=== PATIENT | female | born 1980 | race African-American/Black ===

== ENCOUNTER 2016-11-28 08:30 | Emergency (ER) | payer SELFPAY ==
[2016-11-28] MEDS ORDERED: ONDANSETRON *ODT* 4 MG TABLET ONE (08:53)
[2016-11-28] MEDS ORDERED: ONDANSETRON *ODT* 4 MG TABLET SL ONE (08:55)
[2016-11-28] MEDS ORDERED: PANTOPRAZOLE SODIUM 40 MG in SODIUM CHLORIDE 100 ML IVPB ONE (08:56)
[2016-11-28] MEDS ORDERED: SODIUM CHLORIDE 1,000 ML IV STA ×2 (08:56→10:10)
[2016-11-28] MEDS ORDERED: morphine CARPU-JECT 2 MG/1 ML DISP.SYRIN IVPUSH ONE (09:06)
[2016-11-28 09:09] VITALS: TEMP 98; BMI 24.7
[2016-11-28] MEDS ORDERED: morphine CARPU-JECT 4 MG/1 ML DISP.SYRIN ONE (09:34)
[2016-11-28] MEDS ORDERED: FAMOTIDINE 20 MG/50 ML IVPB 50 ML IVPB ONE (09:34)
--- NOTE | 2016-11-28 09:55 | PDOC ---
History of Present Illness - General Chief Complaint: Pain, Acute Stated Complaint: ABD PAIN Time Seen by Provider: 11/28/16 08:50 History Source: Patient Exam Limitations: No Limitations - History of Present Illness Travel History: No Initial Comments: 11/28/16 09:59 36-year-old female brought in by EMS for evaluation of nausea vomiting upper abdominal pain since yesterday. Patient states has had no fever, chills, diarrhea, lower abdominal pain, irregular menses, or dysuria. Patient denies GI disorders but states does smoke marijuana occasionally. Patient states has not taken anything for the pain or nausea decided come to the ER today. Timing/Duration: reports: getting worse, intermittent Quality: reports: moderate, burning, sharpness, stabbing Abdominal Pain Onset Location: reports: epigastric Pain Radiation: reports: RUQ, LUQ, back Activities at Onset: reports: none Aggravating Factors: improves with: None Alleviating Factors: improves with: Vomiting Past History - Travel Traveled outside of the country in the last 30 days: No Close contact w/someone who was outside of country & ill: No - Past Medical History Allergies/Adverse Reactions: Allergies Allergy/AdvReac Type Severity Reaction Status Date / Time No Known Allergies Allergy Verified 11/28/16 08:44 Home Medications: Ambulatory Orders NK [No Known Home Medication] 11/28/16 GI Disorders: No Other medical history: DENIES. - Reproductive History LMP Normal: Yes Is Patient Now?: No - Psycho/Social/Smoking Cessation Hx Anxiety: No Suicidal Ideation: No Smoking History: Current every day smoker Number of Cigarettes Smoked Daily: 10 Information on smoking cessation initiated: No Hx Alcohol Use: Yes (occassionally.) Drug/Substance Use Hx: No Substance Use Type: Alcohol, Marijuana (occasional) Patient Lives Alone: No Lives with/in: family Review of Systems - Review of Systems Able to Perform ROS?: Yes Constitutional: No: Symptoms Reported HEENTM: No: Symptoms Reported Respiratory: No: Symptoms reported Cardiac (ROS): No: Symptoms Reported ABD/GI: Yes: Nausea, Poor Appetite, Vomiting, Other (abd pain). No: Poor Fluid Intake : No: Symptoms Reported Musculoskeletal: No: Symptoms Reported Integumentary: No: Symptoms Reported Neurological: No: Symptoms reported *Physical Exam - Vital Signs Last Vital Signs Temp Pulse Resp BP Pulse Ox 98 F 66 18 131/78 99 06/15/17 08:40 11/28/16 08:40 11/28/16 08:40 11/28/16 08:40 11/28/16 08:40 - Physical Exam General Appearance: Yes: Nourished, Appropriately Dressed. No: Apparent Distress HEENT: positive: EOMI, DARREN, TMs Normal, Pharynx Normal. negative: Pale Conjunctivae Respiratory/Chest: positive: Lungs Clear, Normal Breath Sounds. negative: Respiratory Distress, Accessory Muscle Use Cardiovascular: positive: Regular Rhythm, Regular Rate. negative: Murmur Gastrointestinal/Abdominal: positive: Soft, Tenderness (epigastric . mild luq/ ruq tenderness) Extremity: positive: Normal Capillary Refill Integumentary: positive: Normal Color, Warm, Moist Neurologic: positive: Normal Mood/Affect, Motor Strength 10/18 ED Treatment Course - LABORATORY CBC & Chemistry Diagram: 11/28/16 09:45 11/28/16 09:45 - Medications Given in the ED: ED Medications Discontinued Medications Generic Name Dose Route Start Last Admin Trade Name Sravanq PRN Reason Stop Dose Admin Pantoprazole Sodium 40 mg/ 100 mls @ 200 mls/hr 11/28/16 08:56 11/28/16 09:41 Sodium Chloride IVPB 11/28/16 09:25 200 mls/hr ONCE ONE Administration Ondansetron HCl 4 mg 11/28/16 08:55 11/28/16 08:55 Zofran Odt - SL 11/28/16 08:56 4 mg ONCE ONE Administration Medical Decision Making - Medical Decision Making 11/28/16 10:02 Patient complains of upper abdominal pain associate nausea and vomiting. Patient on exam had tenderness to the epigastric area and mild right upper quadrant discomfort but negative for Newberry sign. Patient states smokes marijuana occasionally and not on a daily basis. Patient does smoke cigarettes on a daily basis and diet consists of fast food a few times a week. Differential diagnosis includes GERD, gastritis, gastroparesis, cholecystitis, pancreatitis, PUD. Patient ordered for labs, lipase, magnesium, urinalysis, drug screen, urine , sublingual Zofran, IV Protonix, and normal saline bolus. 11/28/16 10:53 Laboratory Tests 11/28/16 11/28/16 09:45 09:45 Sodium 142 Potassium 3.5 Chloride 105 Carbon Dioxide 24 Anion Gap 13 BUN 8 Creatinine 0.6 Calcium 9.7 Magnesium 2.1 AST 24 ALT 26 Total Protein 7.9 Lipase 167 Urine pH 9.0 H Urine Ketones Negative Urine HCG, Qual Negative 11/28/16 10:53 Laboratory Tests 11/28/16 11/28/16 11/28/16 09:45 09:45 09:45 WBC 15.0 H Hgb 13.9 Hct 42.1 Neutrophils % 83.9 H Urine Appearance Cloudy Urine pH 9.0 H Urine Glucose (UA) Negative Urine Ketones Negative Urine Blood Negative Urine Nitrite Negative Ur Leukocyte Esterase Negative Urine HCG, Qual Negative U Marijuana (THC) Screen Positive Patient feeling better after receiving morphine and medication along with fluids. Patient will be given saltine crackers for by mouth challenge 11/28/16 11:53 Patient tolerated saltine cracker. Second bag of IV fluid infusing. Patient be discharged home upon completion with Protonix and Zofran. *DC/Admit/Observation/Transfer Diagnosis at time of Disposition: Marijuana smoker Abdominal pain Qualifiers: Abdominal location: upper abdomen, unspecified Qualified Code(s): R10.10 - Upper abdominal pain, unspecified Nausea and vomiting Qualifiers: Vomiting type: bilious vomiting Qualified Code(s): R11.14 - Bilious vomiting - Discharge Dispostion Disposition: HOME Condition at time of disposition: Improved - Patient Instructions Printed Discharge Instructions: DI for Epigastric Pain, Nausea and Vomiting- Adult Additional Instructions: Please take Zofran as needed for nausea. Please take Protonix for the next 2 days to alleviate the epigastric pain and acid. Avoid marijuana usage.
[2016-11-28 09:59] LABS: BASOPHIL 0.7 % (0-2.0); EOSINOPHIL 0.2 % (0-4.5); MCH 29.8 pg (25.7-33.7); MEAN CELL VOLUME 90.1 fl (80-96); MEAN PLT VOLUME 10.5 fl (7.5-11.1); NEUTROPHILS 83.9 % (42.8-82.8); PLATELET COUNT 222 K/MM3 (134-434)
[2016-11-28 10:02] LABS: URINE APPEARANCE CLOUDY; URINE BILIRUBIN NEGATIVE (NEGATIVE); URINE BLOOD NEGATIVE (NEGATIVE); URINE COLOR LTYELLOW; URINE GLUCOSE (UA) NEGATIVE (NEGATIVE); URINE KETONE NEGATIVE (NEGATIVE); URINE LEUK ESTERASE NEGATIVE (NEGATIVE); URINE NITRITE NEGATIVE (NEGATIVE); URINE PROTEIN NEGATIVE (NEGATIVE); URINE UROBILINOGEN NEGATIVE E.U./dl (0.2-1.0)
[2016-11-28 10:36] LABS: URINE MARIJUANA THC POSITIVE ng/ml (CUTOFF=50)
[2016-11-28 10:48] LABS: CREATININE 0.6 mg/dL (0.55-1.02); GLUCOSE,RANDOM 100 mg/dL (74-106)
[2016-11-28 10:49] LABS: ANION GAP 13 (8-16); CO2 24 mmol/L (21-32)
[2016-11-28 10:50] LABS: ALBUMIN 4.5 g/dl (3.4-5.0); BILIRUBIN,TOTAL 0.3 mg/dL (0.2-1.0); CALCIUM 9.7 mg/dL (8.5-10.1); MAGNESIUM 2.1 mg/dL (1.8-2.4); SGOT/AST 24 U/L (15-37); SGPT/ALT 26 U/L (12-78); TOT PROT 7.9 g/dl (6.4-8.2)
[2016-11-28 10:51] LABS: ALK PHOS 102 U/L (45-117)
[2016-11-28] MEDS ORDERED: ONDANSETRON 4 MG/2 ML VIAL IVPUSH ONE (12:44)
[2016-11-28] MEDS ORDERED: ONDANSETRON 4 MG/2 ML VIAL ONE (12:48)
[2016-11-28 13:02] VITALS: BP 118/64; PULSE 75
== END 2016-11-28 13:01 | disposition home or self-care (01) ==
LOC: JER 08:30
PROC: 3E033GC Introduction of Other Therapeutic Substance into Peripheral Vein, Percutaneous Approach (ICD-10-PCS; principal; 2016-11-28)
PROC: 3E0337Z Introduction of Electrolytic and Water Balance Substance into Peripheral Vein, Percutaneous Approach (ICD-10-PCS; 2016-11-28)
DX: F12.90 Cannabis use, unspecified, uncomplicated (principal); R11.14 Bilious vomiting; R10.10 Upper abdominal pain, unspecified; F17.210 Nicotine dependence, cigarettes, uncomplicated
CPT/HCPCS: 36415; 80053; 80307; 81003; 83690; 83735; 84703; 85025; 99284-25

== ENCOUNTER 2016-11-30 06:23 | Inpatient (IN) | payer OTHER ==
[2016-11-30] MEDS ORDERED: SODIUM CHLORIDE 1,000 ML IV STA ×3 (07:41→11:39)
[2016-11-30] MEDS ORDERED: KETOROLAC TROMETHAMINE 30 MG/1 ML VIAL IVPUSH ONE (07:42)
[2016-11-30] MEDS ORDERED: ONDANSETRON 4 MG/2 ML VIAL IVPUSH ONE ×2 (07:42→11:31)
--- NOTE | 2016-11-30 07:51 | PDOC ---
History of Present Illness - General History Source: Patient - History of Present Illness Timing/Duration: reports: getting worse Abdominal Pain Onset Location: reports: generalized abdomen Pain Radiation: reports: no radiation <Nani aCrdoso - Last Filed: 11/30/16 12:32> <Liat Staley - Last Filed: 12/01/16 10:22> - General Chief Complaint: Pain Stated Complaint: VOMITING Time Seen by Provider: 11/30/16 07:17 Past History - Past Medical History GI Disorders: No - Psycho/Social/Smoking Cessation Hx Anxiety: No Suicidal Ideation: No Smoking History: Current every day smoker Number of Cigarettes Smoked Daily: 10 Information on smoking cessation initiated: No Hx Alcohol Use: No Drug/Substance Use Hx: No Substance Use Type: Alcohol, Marijuana <Nani Cardoso - Last Filed: 11/30/16 12:32> <Liat Staley - Last Filed: 12/01/16 10:22> - Past Medical History Allergies/Adverse Reactions: Allergies Allergy/AdvReac Type Severity Reaction Status Date / Time No Known Allergies Allergy Verified 11/30/16 06:38 Home Medications: Ambulatory Orders Ondansetron HCl [Zofran] 4 mg PO TID PRN #12 tablet 11/28/16 Pantoprazole Sodium [Protonix] 40 mg PO DAILY #7 tablet. 11/28/16 Review of Systems - Review of Systems Constitutional: No: Chills, Fever ABD/GI: Yes: Nausea, Vomiting, Abdominal cramping. No: Blood Streaked Bowels, Constipated, Diarrhea : No: Dysuria <Nani Cardoso - Last Filed: 11/30/16 12:32> *Physical Exam - Vital Signs Last Vital Signs Temp Pulse Resp BP Pulse Ox 98.3 F 93 H 19 124/87 97 11/30/16 06:38 11/30/16 06:38 11/30/16 06:38 11/30/16 06:38 11/30/16 06:38 - Physical Exam General Appearance: Yes: Appropriately Dressed. No: Apparent Distress HEENT: positive: Normal Voice Neck: positive: Supple Respiratory/Chest: negative: Respiratory Distress Gastrointestinal/Abdominal: positive: Normal Bowel Sounds, Tender (diffusely), Soft. negative: Distended, Guarding, Rebound Musculoskeletal: negative: CVA Tenderness Extremity: positive: Normal Inspection Integumentary: positive: Dry, Warm Neurologic: positive: Fully Oriented, Alert, Normal Mood/Affect <KivalinaAfsanehShrutiLola - Last Filed: 11/30/16 12:32> - Vital Signs Last Vital Signs Temp Pulse Resp BP Pulse Ox 99.5 F 85 18 111/61 99 12/01/16 09:14 12/01/16 09:14 12/01/16 09:14 12/01/16 09:14 11/30/16 21:00 <Liat Staley - Last Filed: 12/01/16 10:22> ED Treatment Course - LABORATORY CBC & Chemistry Diagram: 11/30/16 07:50 11/30/16 07:50 - RADIOLOGY Radiology Studies Ordered: Category Date Time Status ABDOMEN & PELVIS CT WITH CONTR [CT] Stat CT Scan 11/30/16 07:40 Ordered <WalkerShrutiLola - Last Filed: 11/30/16 12:32> - LABORATORY CBC & Chemistry Diagram: 12/01/16 06:00 12/01/16 06:00 - ADDITIONAL ORDERS Additional order review: 11/30/16 07:50 RBC 4.54 MCV 89.5 MCHC 33.6 RDW 13.4 MPV 10.1 Neutrophils % 85.0 H Lymphocytes % 6.0 L D Monocytes % 8.0 D Eosinophils % 1.0 D - Medications Given in the ED: ED Medications Discontinued Medications Generic Name Dose Route Start Last Admin Trade Name Freq PRN Reason Stop Dose Admin Sodium Chloride 1,000 mls @ 1,000 mls/hr 11/30/16 07:41 11/30/16 08:03 Normal Saline - IV 11/30/16 08:40 1,000 mls/hr ASDIR STA Administration Potassium Chloride 100 mls @ 100 mls/hr 11/30/16 08:30 11/30/16 11:31 Potassium Chloride 10 Meq Premix Ivpb - IVPB 11/30/16 10:29 100 mls/hr Q60M PABLO Administration Sodium Chloride 1,000 mls @ 1,000 mls/hr 11/30/16 08:53 11/30/16 08:53 Normal Saline - IV 11/30/16 09:52 1,000 mls/hr ASDIR STA Administration Sodium Chloride 1,000 mls @ 1,000 mls/hr 11/30/16 11:39 11/30/16 12:04 Normal Saline - IV 11/30/16 12:38 1,000 mls/hr ASDIR STA Administration Cefazolin Sodium 1 gm/ 50 mls @ 100 mls/hr 11/30/16 11:41 11/30/16 12:04 Dextrose IVPB 11/30/16 12:10 100 mls/hr ONCE ONE Administration Potassium Chloride 100 mls @ 100 mls/hr 11/30/16 14:30 11/30/16 17:21 Potassium Chloride 10 Meq Premix Ivpb - IVPB 11/30/16 17:29 Not Given Q60M PABLO Metronidazole 100 mls @ 100 mls/hr 11/30/16 14:27 11/30/16 15:17 Flagyl 500mg Premixed Ivpb - IVPB 11/30/16 15:26 Not Given ONCE ONE Metronidazole 50 mls @ 50 mls/hr 11/30/16 14:45 11/30/16 14:53 Flagyl 250mg Premixed Ivpb - IVPB Not Given Q6H-IV PABLO Ketorolac Tromethamine 30 mg 11/30/16 07:42 11/30/16 08:03 Toradol Injection - IVPUSH 11/30/16 07:43 30 mg ONCE ONE Administration Ondansetron HCl 4 mg 11/30/16 07:42 11/30/16 08:04 Zofran Injection IVPUSH 11/30/16 07:43 4 mg ONCE ONE Administration Ondansetron HCl 4 mg 11/30/16 11:31 11/30/16 12:04 Zofran Injection IVPUSH 11/30/16 11:32 4 mg ONCE ONE Administration Potassium Chloride 40 meq 11/30/16 08:28 11/30/16 08:36 K-Dur - PO 11/30/16 08:29 40 meq ONCE ONE Administration <Liat Staley - Last Filed: 12/01/16 10:22> Medical Decision Making - Medical Decision Making 11/30/16 07:43 36-year-old female, s/p csection remotely, here with recurrent nausea, vomiting and abdominal pain. Patient states symptoms started approximately 3 days ago and was seen in ED at [facility] 2 days ago and had labs done in ED which was remarkable for wbc of 15 and also + for marijuana (pt states she smokes "occasionally"). States she was given meds in ED and felt better upon discharge but that sxs returned this am. States she vomited once yesterday and approximately 3 times today. Reports diffuse abdominal pain now. No acute change in bowel movements, dysuria, fever or chills. No h/o simialr sxs in the past See exam Recurrent n/v/ and abd pain Wbc 15 w/ +marijuana on utox on ED visit 2 days ago, no imaging done VSS w/ minimal discomfort in ED Of note, ?bilious vomitus in emesis bag at bedside Abd diffusely tender including over mcburneys R/o appy, possible cannibus hyperemesis syndrome -pain control -IVF -zofran -labs -CT 11/30/16 11:32 CT negative for appendicitis but does show overdistended gallbladder with pericholecystic fluid consistent with acute cholecystitis. Also seen are signs suggestive of early ileus/developing obstruction to left side of abdomen. Patient continues to c/o nausea at this time. Surgery consult pending 11/30/16 11:45 Case d/w Dr [place] of surgery and pt to have kelly Friday. Abx in progress and pre-op labs ordered. Will admit to hospitalist 11/30/16 11:46 11/30/16 12:30 11/30/16 12:33 Pt admitted to the hospitalist <Nani Cardoso - Last Filed: 11/30/16 12:32> *DC/Admit/Observation/Transfer - Discharge Dispostion Admit: Yes <Nani Cardoso - Last Filed: 11/30/16 12:32> - Attestations Physician Attestion: I reviewed the case with the mid-level practitioner and agree with the mid- level practitioner's assessment, diagnosis and disposition. <Liat Staley - Last Filed: 12/01/16 10:22> Diagnosis at time of Disposition: Acute cholecystitis - Discharge Dispostion Condition at time of disposition: Fair
[2016-11-30] MEDS ORDERED: ONDANSETRON 4 MG/2 ML VIAL ONE ×2 (07:58→11:49)
[2016-11-30] MEDS ORDERED: KETOROLAC TROMETHAMINE 30 MG/1 ML VIAL ONE (07:58)
[2016-11-30 08:06] LABS: MCHC 33.6 g/dl (32.0-36.0); MEAN CELL VOLUME 89.5 fl (80-96); MEAN PLT VOLUME 10.1 fl (7.5-11.1); PLATELET COUNT 188 K/MM3 (134-434); RDW 13.4 % (11.6-15.6); WHITE BLOOD COUNT 30.9 K/mm3 (4.0-10.0)
[2016-11-30 08:23] LABS: ALBUMIN 3.5 g/dl (3.4-5.0); ANION GAP 12 (8-16); CALCIUM 8.5 mg/dL (8.5-10.1); CO2 26 mmol/L (21-32); CREATININE 0.4 mg/dL (0.55-1.02); GLUCOSE,RANDOM 120 mg/dL (74-106); SGOT/AST 20 U/L (15-37); SGPT/ALT 23 U/L (12-78)
[2016-11-30 08:25] LABS: ALK PHOS 85 U/L (45-117); BILIRUBIN,TOTAL 1.1 mg/dL (0.2-1.0); TOT PROT 6.7 g/dl (6.4-8.2)
[2016-11-30] MEDS ORDERED: POTASSIUM CHLORIDE TABS 20 MEQ TABLET.ER (FP) PO ONE ×2 (08:28→08:31)
[2016-11-30] MEDS ORDERED: KCL 10 MEQ IVPB 100 ML IVPB SCH (08:30)
[2016-11-30] MEDS ORDERED: KCL 10 MEQ IVPB 100 ML IVPB ONE ×2 (08:31→11:02)
[2016-11-30] MEDS: KCL 10 MEQ IVPB 100 ML IVPB SCH ×5 (08:52→17:21)
[2016-11-30 10:00] LABS: PLATELET ESTIMATE ADEQUATE (NORMAL)
[2016-11-30 10:02] LABS: HIV 1 & 2 AB NEGATIVE; HIV 1 AGp24 NEGATIVE
[2016-11-30 11:41] LABS: URINE APPEARANCE CLEAR; URINE BILIRUBIN NEGATIVE (NEGATIVE); URINE COLOR LTYELLOW; URINE GLUCOSE (UA) NEGATIVE (NEGATIVE); URINE KETONE 2+ (NEGATIVE); URINE LEUK ESTERASE NEGATIVE (NEGATIVE); URINE NITRITE NEGATIVE (NEGATIVE); URINE PROTEIN NEGATIVE (NEGATIVE); URINE UROBILINOGEN NEGATIVE E.U./dl (0.2-1.0)
[2016-11-30] MEDS ORDERED: CEFAZOLIN 1 GM in DEXTROSE 5%-WATER - 50 ML IVPB ONE (11:41)
[2016-11-30 11:44] LABS: URINE BLOOD 1+ (NEGATIVE)
[2016-11-30] MEDS ORDERED: CEFAZOLIN (PRE-DOCKED) 50 ML IVPB ONE (11:48)
[2016-11-30 11:49] LABS: URINE MUCUS RARE; URINE RBC 1 /hpf (0-3); URINE WBC 2 /hpf (3-5)
[2016-11-30 12:06] LABS: URINE MARIJUANA THC POSITIVE ng/ml (CUTOFF=50)
[2016-11-30 12:32] LABS: INR 1.66 (0.82-1.09); PROTHROMBIN TIME (PATIENT) 18.4 SEC (9.98-11.88)
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
[2016-11-30] MEDS ORDERED: ONDANSETRON 4 MG/2 ML VIAL IVPB PRN (14:24)
[2016-11-30] MEDS ORDERED: METRONIDAZOLE 500 MG PREMIXED 100 ML IVPB ONE (14:27)
[2016-11-30] MEDS ORDERED: METRONIDAZOLE 500 MG PREMIXED 100 ML IVPB SCH (14:30)
[2016-11-30] MEDS ORDERED: METRONIDAZOLE PREMIXED IVPB 50 ML IVPB SCH (14:45)
[2016-11-30] MEDS ORDERED: PANTOPRAZOLE SODIUM 100 ML IVPB ONE (14:58)
[2016-11-30] MEDS: LACTATED RINGERS SOLUTION 1,000 ML IV SCH (15:16)
[2016-11-30] MEDS: PANTOPRAZOLE SODIUM 100 ML IVPB SCH (15:16)
[2016-11-30] MEDS: METRONIDAZOLE 500 MG PREMIXED 100 ML IVPB SCH ×2 (15:16→21:13)
[2016-11-30] MEDS: HYDROmorphone HCL CARPU-JECT 1 MG/1 ML DISP.SYRIN IVPB PRN ×2 (16:28→20:46)
[2016-11-30 16:55] VITALS: BMI 24.2
[2016-12-01] MEDS: ACETAMINOPHEN 325 MG TABLET (FP) PO PRN ×2 (01:03→15:08)
[2016-12-01] MEDS: HYDROmorphone HCL CARPU-JECT 1 MG/1 ML DISP.SYRIN IVPB PRN ×4 (01:03→23:31)
[2016-12-01] MEDS: METRONIDAZOLE 500 MG PREMIXED 100 ML IVPB SCH ×4 (02:41→21:58)
[2016-12-01] MEDS: LACTATED RINGERS SOLUTION 1,000 ML IV SCH ×3 (06:29→16:38)
[2016-12-01 07:53] LABS: INR 1.69 (0.82-1.09); PROTHROMBIN TIME (PATIENT) 18.8 SEC (9.98-11.88)
[2016-12-01 08:04] LABS: ALBUMIN 2.5 g/dl (3.4-5.0); ALK PHOS 72 U/L (45-117); BILIRUBIN,TOTAL 1.2 mg/dL (0.2-1.0); CALCIUM 7.6 mg/dL (8.5-10.1); CREATININE 0.4 mg/dL (0.55-1.02); GLUCOSE,RANDOM 80 mg/dL (74-106); MAGNESIUM 1.8 mg/dL (1.8-2.4); SGOT/AST 16 U/L (15-37); SGPT/ALT 19 U/L (12-78)
[2016-12-01 08:13] LABS: BASOPHIL 0.2 % (0-2.0); EOSINOPHIL 2.2 % (0-4.5); MCH 29.9 pg (25.7-33.7); MEAN CELL VOLUME 90.7 fl (80-96); MEAN PLT VOLUME 10.7 fl (7.5-11.1); NEUTROPHILS 83.1 % (42.8-82.8); PLATELET COUNT 158 K/MM3 (134-434); RDW 13.3 % (11.6-15.6); WHITE BLOOD COUNT 23.8 K/mm3 (4.0-10.0)
--- NOTE | 2016-12-01 08:34 | PN ---
Physical Exam: SUBJECTIVE: Patient seen and examined c/o having mid epigastric pain, pain scale is the same as per admission. OBJECTIVE: Vital Signs Temperature 98.6 F 12/01/16 06:00 Pulse Rate 68 12/01/16 06:00 Respiratory Rate 20 12/01/16 06:00 Blood Pressure 95/58 12/01/16 06:00 O2 Sat by Pulse Oximetry (%) 99 11/30/16 21:00 GENERAL: The patient is awake, alert, and fully oriented, in no acute distress. HEAD: Normal with no signs of trauma. EYES: PERRL, extraocular movements intact, sclera anicteric, conjunctiva clear. ENT: Ears normal, oropharynx clear without exudates, moist mucous membranes. NECK: Trachea midline, full range of motion, supple. LUNGS: Breath sounds equal, clear to auscultation bilaterally, no wheezes, no crackles, no accessory muscle use. HEART: Regular rate and rhythm, S1, S2 without murmur, rub or gallop. ABDOMEN: Soft, mid epigastric tenderness ,nondistended, normoactive bowel sounds , no guarding, no rebound, no hepatosplenomegaly, no masses. EXTREMITIES: 2+ pulses, warm, well-perfused, no edema. NEUROLOGICAL: Cranial nerves II through XII grossly intact. Normal speech, gait not observed. PSYCH: Normal mood, normal affect. SKIN: Warm, dry, normal turgor, no rashes or lesions noted CBCD WBC 23.8 K/mm3 (4.0-10.0) H 12/01/16 06:00 RBC 3.64 M/mm3 (3.60-5.2) 12/01/16 06:00 Hgb 10.9 GM/dL (10.7-15.3) D 12/01/16 06:00 Hct 33.0 % (32.4-45.2) D 12/01/16 06:00 MCV 90.7 fl (80-96) 12/01/16 06:00 MCHC 33.0 g/dl (32.0-36.0) 12/01/16 06:00 RDW 13.3 % (11.6-15.6) 12/01/16 06:00 Plt Count 158 K/MM3 (134-434) 12/01/16 06:00 MPV 10.7 fl (7.5-11.1) 12/01/16 06:00 CMP Sodium 141 mmol/L (136-145) 12/01/16 06:00 Potassium 3.3 mmol/L (3.5-5.1) L 12/01/16 06:00 Chloride 104 mmol/L (98-107) 12/01/16 06:00 Carbon Dioxide 30 mmol/L (21-32) 12/01/16 06:00 Anion Gap 7 (8-16) L 12/01/16 06:00 BUN 2 mg/dL (7-18) L* D 12/01/16 06:00 Creatinine 0.4 mg/dL (0.55-1.02) L 12/01/16 06:00 Creat Clearance w eGFR > 60 (>60) 12/01/16 06:00 Random Glucose 80 mg/dL (74-106) D 12/01/16 06:00 Calcium 7.6 mg/dL (8.5-10.1) L 12/01/16 06:00 Total Bilirubin 1.2 mg/dL (0.2-1.0) H 12/01/16 06:00 AST 16 U/L (15-37) 12/01/16 06:00 ALT 19 U/L (12-78) 12/01/16 06:00 Alkaline Phosphatase 72 U/L (45-117) 12/01/16 06:00 Total Protein 5.0 g/dl (6.4-8.2) L D 12/01/16 06:00 Albumin 2.5 g/dl (3.4-5.0) L D 12/01/16 06:00 Active Medications Generic Name Dose Route Start Last Admin Trade Name Freq PRN Reason Stop Dose Admin Acetaminophen 650 mg 11/30/16 14:24 12/01/16 01:03 Tylenol - PO 650 mg Q4H PRN Administration FEVER OR PAIN Hydromorphone HCl 0.5 mg 11/30/16 14:24 12/01/16 06:50 Dilaudid Injection - IVPB 0.5 mg Q4H PRN Administration PAIN Lactated Ringer's 1,000 mls @ 83 mls/hr 11/30/16 14:30 12/01/16 06:29 Lactated Ringers Solution IV 83 mls/hr ASDIR PABLO Administration Pantoprazole Sodium 100 mls @ 200 mls/hr 11/30/16 14:30 11/30/16 15:16 Protonix 40mg Ivpb (Pre-Docked) IVPB 200 mls/hr DAILY PABLO Administration Levofloxacin 150 mls @ 150 mls/hr 12/01/16 10:00 Levaquin 750 Mg Premixed Ivpb - IVPB DAILY PABLO Metronidazole 100 mls @ 100 mls/hr 11/30/16 15:00 12/01/16 02:41 Flagyl 500mg Premixed Ivpb - IVPB 100 mls/hr Q6H-IV PABLO Administration Ondansetron HCl 4 mg 11/30/16 14:24 Zofran Injection IVPB Q6H PRN NAUSEA Home Medications Medication Instructions Recorded Ondansetron HCl [Zofran] 4 mg PO TID PRN #12 tablet 11/28/16 Pantoprazole Sodium [Protonix] 40 mg PO DAILY #7 tablet. 11/28/16 Laboratory Tests 11/30/16 11/30/16 11/30/16 07:50 11:39 11:39 INR 1.66 H Potassium 2.8 L* U Marijuana (THC) Screen Positive 12/01/16 12/01/16 06:00 06:00 INR 1.69 H Potassium 3.3 L U Marijuana (THC) Screen ASSESSMENT/PLAN: 36 year old female with sepsis (tachycardia to 98, leukocytosis to 31) likely secondary to acute cholecystitis. # Acute cholecystitis going for sx in am with , On IV abxs continue ( Levaquin/Flagyl) continue -Hydromorphone 0.5mg IVPB q6h prn pain will increase the frequency of pain medication, Zofran q6h prn nausea, IVF LR @83 mLs/hr # Acute Hypokalemia will replete with IV potassium #Smoking addiction Declines NRT # Prolonged INR ; No active bleeding # DVT prophylaxis: Ambulation, SCDs Visit type - Emergency Visit Emergency Visit: Yes ED Registration Date: 11/30/16 Care time: The patient presented to the Emergency Department on the above date and was hospitalized for further evaluation of their emergent condition. - New Patient This patient is new to me today: Yes Date on this admission: 12/01/16 - Critical Care Critical Care patient: No
[2016-12-01] MEDS: LEVOFLOXACIN 750 MG IVPB 150 ML IVPB SCH (09:20)
[2016-12-01] MEDS: PANTOPRAZOLE SODIUM 100 ML IVPB SCH (09:20)
--- NOTE | 2016-12-01 11:12 | CONSULT ---
- Consultation REQUESTING PROVIDER: Popeye CONSULT REQUEST: We have been asked to surgically evaluate this patient for ( specify). PCP:Cathi Cid HISTORY OF PRESENT ILLNESS: CTSP elroy is a 36 y/o A/A female who presented w/ 2 episodes in 48 hours of nausea/vomiting and RUQ abdominal pain; she never had this before; she was txed and released from the ER previously w/o any w/u being done; she now returns PMHx: None PSHx: None Home Medications Medication Instructions Recorded Ondansetron HCl [Zofran] 4 mg PO TID PRN #12 tablet 11/28/16 Pantoprazole Sodium [Protonix] 40 mg PO DAILY #7 tablet. 11/28/16 Allergies Allergy/AdvReac Type Severity Reaction Status Date / Time No Known Allergies Allergy Verified 11/30/16 06:38 REVIEW OF SYSTEMS: CONSTITUTIONAL: Present: fever, chills, diaphoresis, generalized weakness only currently CARDIOVASCULAR: Absent: chest pain, syncope, palpitations, irregular heart rate, lightheadedness , peripheral edema RESPIRATORY: Absent: cough, shortness of breath, dyspnea with exertion, wheezing, stridor, hemoptysis GASTROINTESTINAL: Present: abdominal pain, abdominal distension, nausea, vomiting, GENITOURINARY: Absent: dysuria, frequency, urgency, hesitancy, hematuria, flank pain, genital pain MUSCULOSKELETAL: Absent: myalgia, arthralgia, joint swelling, back pain, neck pain SKIN: Absent: rash, itching, pallor HEMATOLOGIC/IMMUNOLOGIC: Absent: easy bleeding, easy bruising, lymphadenopathy NEUROLOGIC: Absent: headache, focal weakness, paresthesias, dizziness, unsteady gait, seizure, mental status changes, bladder or bowel incontinence PSYCHIATRIC: Absent: anxiety, depression, suicidal or homicidal ideation, hallucinations. PHYSICAL EXAM: GENERAL: Awake, alert, and fully oriented, in no acute distress. HEAD: Normal with no signs of trauma. EYES: PERRL, sclera anicteric, conjunctiva clear. NECK: Normal ROM, supple without lymphadenopathy, JVD, or masses. ABDOMEN: Soft, Tender RUQ w/guarding, not distended, normoactive bowel sounds, positive guarding, no rebound, no masses. No organomegaly. No hernias; no scars MUSCULOSKELETAL: Normal ROM at all joints. No bony deformities or tenderness. No CVA tenderness. UPPER EXTREMITIES: 2+ pulses, warm, well-perfused. No cyanosis. Cap refill <2 seconds. No peripheral edema. LOWER EXTREMITIES: 2+ pulses, warm, well-perfused. No calf tenderness. No peripheral edema. NEUROLOGICAL: Normal speech, gait not observed. PSYCH: Cooperative. Good eye contact. Appropriate mood and affect. SKIN: Warm, dry, normal turgor, no rashes or lesions noted. Vital Signs Temperature 99.5 F 12/01/16 09:14 Pulse Rate 85 12/01/16 09:14 Respiratory Rate 18 12/01/16 09:14 Blood Pressure 111/61 12/01/16 09:14 O2 Sat by Pulse Oximetry (%) 99 11/30/16 21:00 Lab Results WBC 23.8 K/mm3 (4.0-10.0) H 12/01/16 06:00 RBC 3.64 M/mm3 (3.60-5.2) 12/01/16 06:00 Hgb 10.9 GM/dL (10.7-15.3) D 12/01/16 06:00 Hct 33.0 % (32.4-45.2) D 12/01/16 06:00 MCV 90.7 fl (80-96) 12/01/16 06:00 MCHC 33.0 g/dl (32.0-36.0) 12/01/16 06:00 RDW 13.3 % (11.6-15.6) 12/01/16 06:00 Plt Count 158 K/MM3 (134-434) 12/01/16 06:00 Sodium 141 mmol/L (136-145) 12/01/16 06:00 Potassium 3.3 mmol/L (3.5-5.1) L 12/01/16 06:00 Chloride 104 mmol/L (98-107) 12/01/16 06:00 Carbon Dioxide 30 mmol/L (21-32) 12/01/16 06:00 Anion Gap 12 (8-16) 11/30/16 07:50 BUN 2 mg/dL (7-18) L* D 12/01/16 06:00 Creatinine 0.4 mg/dL (0.55-1.02) L 12/01/16 06:00 Random Glucose 80 mg/dL (74-106) D 12/01/16 06:00 Calcium 7.6 mg/dL (8.5-10.1) L 12/01/16 06:00 Blood Type B POSITIVE 11/30/16 11:39 Antibody Screen Negative 11/30/16 11:39 INR 1.69 (0.82-1.09) H 12/01/16 06:00 Imaging w/u to date reviewed. IMP:acute cholecystitis/cholelithiasis PLAN: Concur w/tx plan to date; for lap kelly possible open 12/02/16; r/b/t d/w the patient who is amenable to same. Scotty Madrid MD FACS Visit type - Case Type Case Type: ED Admission - Emergency Emergency Visit: Yes ED Registration Date: 11/30/16 Care time: The patient presented to the Emergency Department on the above date and was hospitalized for further evaluation of their emergent condition. - New patient This patient is new to me today: Yes Date on this admission: 12/01/16 - Critical Care Critical Care patient: No
[2016-12-01 11:42] LABS: ANION GAP 7 (8-16); CO2 30 mmol/L (21-32)
[2016-12-01] MEDS: FAMOTIDINE 20 MG/50 ML IVPB 50 ML IVPB SCH (22:27)
[2016-12-02] MEDS: LACTATED RINGERS SOLUTION 1,000 ML IV SCH ×3 (02:05→17:33)
[2016-12-02] MEDS: METRONIDAZOLE 500 MG PREMIXED 100 ML IVPB SCH ×5 (02:14→22:27)
[2016-12-02] MEDS: HYDROmorphone HCL CARPU-JECT 1 MG/1 ML DISP.SYRIN IVPB PRN ×2 (09:21→18:20)
[2016-12-02] MEDS ORDERED: BUPIVACAINE HCL/PF 0.5% (5MG/ML) 10 ML VIAL ONE (10:37)
[2016-12-02] MEDS ORDERED: PROMETHAZINE HCL 25 MG/1 ML VIAL IVPUSH PRN (10:57)
[2016-12-02] MEDS ORDERED: ONDANSETRON 4 MG/2 ML VIAL IVPUSH PRN ×2 (10:57→15:11)
[2016-12-02] MEDS ORDERED: LACTATED RINGERS SOLUTION 1,000 ML IV SCH (11:00)
[2016-12-02] MEDS ORDERED: ROCURONIUM BROMIDE 50 MG/5 ML VIAL ONE ×2 (11:02→13:09)
[2016-12-02] MEDS ORDERED: PROPOFOL 20 ML ONE (11:02)
[2016-12-02] MEDS ORDERED: MIDAZOLAM HCL 2 MG/2 ML SINGLE DOSE VIAL ONE (11:03)
[2016-12-02] MEDS ORDERED: LEVOFLOXACIN 500 MG PREMIX BAG IVPB ONE (11:30)
[2016-12-02] MEDS ORDERED: DEXAMETHASONE SOD PHOSPHATE 4 MG/1 ML VIAL ONE (11:34)
[2016-12-02] MEDS ORDERED: LEVOFLOXACIN 500 MG IVPB 100 ML IVPB ONE (11:35)
[2016-12-02] MEDS ORDERED: GLYCOPYRROLATE 0.2 MG/1 ML VIAL ONE (14:31)
[2016-12-02] MEDS ORDERED: NEOSTIGMINE METHYLSULFATE 0.5 MG/ML - 10 ML MDV ONE (14:32)
[2016-12-02] MEDS ORDERED: BUPIVACAINE HCL/PF 0.5% (5MG/ML) 10 ML VIAL IJ ONE (14:38)
[2016-12-02] MEDS: LEVOFLOXACIN 750 MG IVPB 150 ML IVPB SCH ×2 (14:54→17:41)
[2016-12-02] MEDS: PANTOPRAZOLE SODIUM 100 ML IVPB SCH (14:55)
[2016-12-02] MEDS: FAMOTIDINE 20 MG/50 ML IVPB 50 ML IVPB SCH (14:55)
[2016-12-02] MEDS ORDERED: ACETAMINOPHEN 1000 MG/100 ML VIAL (NON FORMULARY) IVPB ONE ×2 (14:56→15:52)
--- NOTE | 2016-12-02 15:01 | OP ---
Operative Note - Note: Operative Date: 12/02/16 Pre-Operative Diagnosis: acute cholecystitis, cholelithiasis Operation: laparoscopic cholecystectomy Post-Operative Diagnosis: Same as Pre-op Surgeon: Scotty Madrid High Frequency Mill Operator: Kim Collier Anesthesiologist/SLASHER TENDER HELPER: Kenny Xie Anesthesia: General Specimens Removed: gallbladder Estimated Blood Loss (mls): 50 Drains & Tubes with Location: BHARGAVI right abdomen Fluid Volume Replaced (mls): 1,400 Operative Report Dictated: Yes
--- NOTE | 2016-12-02 15:03 | SURG ---
Surgery Closing Agent Note Closing Agent: Kim Collier PA-C Date of Service: 12/02/16 Diagnosis: acute cholecystitis, cholelithiasis Procedure: laparoscopic cholecystectomy I was present for the entirety of the operative procedure. For further detail, please refer to operative report. Visit type - Case Type Case Type: ED Admission
[2016-12-02] MEDS ORDERED: PROMETHAZINE HCL 25 MG/1 ML VIAL ONE (15:05)
[2016-12-02] MEDS ORDERED: PROMETHAZINE HCL 25 MG/1 ML VIAL IVPB ONE (15:10)
[2016-12-02] MEDS ORDERED: ONDANSETRON 4 MG/2 ML VIAL IVPB PRN (15:11)
[2016-12-02] MEDS ORDERED: ACETAMINOPHEN 325 MG TABLET (FP) PO PRN (15:11)
[2016-12-02] MEDS ORDERED: ACETAMINOPHEN INJECTION 100 ML IVPB ONE (15:12)
--- NOTE | 2016-12-02 16:28 | PN ---
Teaching Attending Note Name of Resident: Saad Oh ATTENDING PHYSICIAN STATEMENT I saw and evaluated the patient. I reviewed the resident's note and discussed the case with the resident. I agree with the resident's findings and plan as documented. SUBJECTIVE: seen and evaluated in postop suite. STill lethargic from anesthesia. No complaints. OBJECTIVE: Vital Signs Temperature 100.0 F H 12/02/16 14:45 Pulse Rate 84 12/02/16 15:15 Respiratory Rate 16 12/02/16 15:15 Blood Pressure 117/63 12/02/16 15:15 O2 Sat by Pulse Oximetry (%) 97 12/02/16 15:15 CVS S1/S2 wnl ABD RUQ postop drain and dressing , 2 cc of hemorrhagic fluid LUNGS CTA B/l CBC, BMP 12/01/16 06:00 12/01/16 06:00 ASSESSMENT AND PLAN: 36 year old female that presented to the ED with abdominal pain 1. Acute cholecystitis- s/p lap kelly, tolerated well * pain control with IV dilaudid prn * bowel regimen colace/senna prn * IV antibiotics 2. Hypokalemia - supplemented * repeat labs 3. DVT ppx * SCD
--- NOTE | 2016-12-02 17:48 | PN ---
Physical Exam: SUBJECTIVE: Patient was transferred from OR to med-surg floor. She stated they just operated on her and she's feeling weak. No other complaint. OBJECTIVE: Vital Signs Period Temp Pulse Resp BP Sys/Glaan Pulse Ox Last 24 Hr 97.7 F-100.3 F 84-114 16-20 108-128/62-74 95-97 GENERAL: The patient is awake, alert, and fully oriented, in no acute distress. LUNGS: CTAB HEART: tachycardic, S1, S2 without murmur, rub or gallop. ABDOMEN: Soft, 3 surgical sites covered with dressing, BHARGAVI tube placed in RUQ, tenderness at surgical sites, nondistended, no guarding/rebound EXTREMITIES: SCDs, no edema. CBCD WBC 23.8 K/mm3 (4.0-10.0) H 12/01/16 06:00 RBC 3.64 M/mm3 (3.60-5.2) 12/01/16 06:00 Hgb 10.9 GM/dL (10.7-15.3) D 12/01/16 06:00 Hct 33.0 % (32.4-45.2) D 12/01/16 06:00 MCV 90.7 fl (80-96) 12/01/16 06:00 MCHC 33.0 g/dl (32.0-36.0) 12/01/16 06:00 RDW 13.3 % (11.6-15.6) 12/01/16 06:00 Plt Count 158 K/MM3 (134-434) 12/01/16 06:00 MPV 10.7 fl (7.5-11.1) 12/01/16 06:00 CMP Sodium 141 mmol/L (136-145) 12/01/16 06:00 Potassium 3.3 mmol/L (3.5-5.1) L 12/01/16 06:00 Chloride 104 mmol/L (98-107) 12/01/16 06:00 Carbon Dioxide 30 mmol/L (21-32) 12/01/16 06:00 Anion Gap 7 (8-16) L 12/01/16 06:00 BUN 2 mg/dL (7-18) L* D 12/01/16 06:00 Creatinine 0.4 mg/dL (0.55-1.02) L 12/01/16 06:00 Creat Clearance w eGFR > 60 (>60) 12/01/16 06:00 Calcium 7.6 mg/dL (8.5-10.1) L 12/01/16 06:00 Total Bilirubin 1.2 mg/dL (0.2-1.0) H 12/01/16 06:00 AST 16 U/L (15-37) 12/01/16 06:00 ALT 19 U/L (12-78) 12/01/16 06:00 Alkaline Phosphatase 72 U/L (45-117) 12/01/16 06:00 Total Protein 5.0 g/dl (6.4-8.2) L D 12/01/16 06:00 Albumin 2.5 g/dl (3.4-5.0) L D 12/01/16 06:00 Active Medications Generic Name Dose Route Start Last Admin Trade Name Freq PRN Reason Stop Dose Admin Acetaminophen 650 mg 12/02/16 15:11 Tylenol - PO Q4H PRN FEVER OR PAIN Hydromorphone HCl 0.5 mg 12/02/16 15:11 Dilaudid Injection - IVPB Q3H PRN PAIN Metronidazole 100 mls @ 100 mls/hr 12/02/16 15:30 Flagyl 500mg Premixed Ivpb - IVPB Q6H-IV PABLO Lactated Ringer's 1,000 mls @ 125 mls/hr 12/02/16 15:11 12/02/16 16:24 Lactated Ringers Solution IV Not Given ASDIR PABLO Levofloxacin 150 mls @ 150 mls/hr 12/02/16 15:30 Levaquin 750 Mg Premixed Ivpb - IVPB DAILY PABLO Pantoprazole Sodium 100 mls @ 200 mls/hr 12/03/16 10:00 Protonix 40mg Ivpb (Pre-Docked) IVPB DAILY PABLO Famotidine/Sodium Chloride 50 mls @ 100 mls/hr 12/02/16 22:00 Pepcid 20 Mg Premixed Ivpb - IVPB BID PABLO Pantoprazole Sodium 100 mls @ 200 mls/hr 12/03/16 10:00 Protonix 40mg Ivpb (Pre-Docked) IVPB DAILY PABLO Ondansetron HCl 4 mg 12/02/16 15:11 Zofran Injection IVPB Q6H PRN NAUSEA Microbiology 11/30/16 15:00 Blood Culture - Preliminary Blood - Peripheral Venous NO GROWTH OBTAINED AFTER 48 HOURS, INCUBATION TO CONTINUE FOR 3 DAYS. 12/01/16 01:10 Urine Culture - Final Urine - Urine Clean Catch NO GROWTH OBTAINED 11/30/16 17:15 Blood Culture - Preliminary Blood - Peripheral Venous NO GROWTH OBTAINED AFTER 24 HOURS, INCUBATION TO CONTINUE FOR 4 DAYS. IMAGING U/S abd on 12/01: acute calculus cholecystitis CT abd on 12/01: acutely inflammed and overdistended gallbladder with pericholecystic fluid ASSESSMENT/PLAN: 36 yo F admitted to med-surg for sepsis secondary to acute cholecystitis. She's now s/p cholecystectomy with BHARGAVI drain tube placed. Acute calculus cholecystitis, moderate severity - s/p lap cholecystectomy + BHARGAVI tube - Cont. flagyl 500mg Q6H day 3 and levaquin 750mg daily day 2 - Dilaudid 0.5 Q3H PRN for pain control - Zofran for n/v - Advance diet as tolerated FEN - Cont. LR 125cc/hr - Mild Hypokalemia with borderline low Mg2+, will monitor for now - NPO for now Prophylaxis - DVT: SCDs - GI: PPI Dispo - Cont. to monitor on med-surg Visit type - Emergency Visit Emergency Visit: Yes ED Registration Date: 11/30/16 Care time: The patient presented to the Emergency Department on the above date and was hospitalized for further evaluation of their emergent condition. - New Patient This patient is new to me today: Yes Date on this admission: 12/02/16 - Critical Care Critical Care patient: No
[2016-12-02] MEDS ORDERED: FAMOTIDINE 20 MG/50 ML IVPB 50 ML IVPB SCH (22:00)
[2016-12-03] MEDS: METRONIDAZOLE 500 MG PREMIXED 100 ML IVPB SCH ×4 (02:27→21:37)
--- NOTE | 2016-12-03 02:30 | HOSP ---
Subjective - Review of Symptoms Events since last encounter: Pt complaining of chest pain and sob. O2 sat at room air 90% and after 2L NC 99% . Pt states her chest pain and SOB have been ongoing since coming out of surgery today. She feels like her CP is more like pressure and located in mid sternum with no radiation. It is quantified as a 7/10 in intensity. No N/V/F/C, diaphoresis. Pt able to speak in full sentences without issue. Sitting comfortably in bed on laptop. C/V: RRR, S1 S2+, No murmurs Resp: B/L clear to auscultation Extremities: No calf tenderness, no swelling or edema. EKG stat ordered EKG shows NSR @ [address] segment changes noted. No previous EKG to compare to. CXR ordered for chest pain. Trop stat ordered and trop in AM ordered to be trended. Wells Score 1.5, low risk of PE at this time. Physical Examination Vital Signs: Vital Signs Temperature 99 F 12/02/16 21:00 Pulse Rate 81 12/02/16 21:00 Respiratory Rate 18 12/02/16 21:00 Blood Pressure 125/74 12/02/16 21:00 O2 Sat by Pulse Oximetry (%) 96 12/02/16 16:45 Labs: CBC, BMP 12/01/16 06:00 12/01/16 06:00 Visit type - Emergency Visit Emergency Visit: Yes ED Registration Date: 11/30/16 Care time: The patient presented to the Emergency Department on the above date and was hospitalized for further evaluation of their emergent condition. - New Patient This patient is new to me today: Yes Date on this admission: 12/03/16 - Critical Care Critical Care patient: No
[2016-12-03] MEDS: HYDROmorphone HCL CARPU-JECT 1 MG/1 ML DISP.SYRIN IVPB PRN ×5 (03:54→21:38)
[2016-12-03] MEDS: LACTATED RINGERS SOLUTION 1,000 ML IV SCH ×3 (05:54→23:40)
[2016-12-03 07:25] LABS: BASOPHIL 0.1 % (0-2.0); MCH 29.6 pg (25.7-33.7); MCHC 32.8 g/dl (32.0-36.0); MEAN PLT VOLUME 9.4 fl (7.5-11.1); NEUTROPHILS 86.6 % (42.8-82.8); PLATELET COUNT 187 K/MM3 (134-434); RDW 13.4 % (11.6-15.6); WHITE BLOOD COUNT 18.2 K/mm3 (4.0-10.0)
[2016-12-03 07:55] LABS: ALBUMIN 2.1 g/dl (3.4-5.0); ANION GAP 10 (8-16); BILIRUBIN,TOTAL 0.7 mg/dL (0.2-1.0); CALCIUM 7.8 mg/dL (8.5-10.1); CO2 30 mmol/L (21-32); CREATININE 0.3 mg/dL (0.55-1.02); GLUCOSE,RANDOM 89 mg/dL (74-106); MAGNESIUM 1.7 mg/dL (1.8-2.4); SGOT/AST 25 U/L (15-37); SGPT/ALT 37 U/L (12-78); TOT PROT 4.6 g/dl (6.4-8.2)
[2016-12-03 07:56] LABS: ALK PHOS 97 U/L (45-117)
--- NOTE | 2016-12-03 08:10 | PN ---
Progress Note (short form) - Note Progress Note: POD #1 Alert. States she has gotten OOB and ambulated unassisted to bathroom. Voiding spontaneously. C/o incisional tenderness. Pain managed well via PRN meds. Denies n/v/f/c, CP or SOB. Last Vital Signs Temp Pulse Resp BP Pulse Ox 98.8 F 69 18 124/86 98 12/03/16 05:00 12/03/16 05:00 12/03/16 05:00 12/03/16 05:00 12/02/16 21:00 BMP 12/03/16 06:00 WBC TREND 12/01/16 12/03/16 06:00 06:00 WBC 23.8 H 18.2 H PE Gen: nad Abd: all surgical ports intact. No hematoma LE: TEDs b/l. Soft, NT A/P Acute cholecystitis s/p lap cholcystectomy POD #1 Start clear liquid diet (ordered) Hypokalemia --> K ordered Cont OOB and ambulate Pain management PRN <Hosea Curtis P - Last Filed: 12/03/16 08:14> - Note Progress Note: Attending Surgeon POD # 1 Patient seen and evaluated;concur w/ a/p as per surgical PA Kirsten. Scotty Madrid MD FACS <Scotty Madrid N - Last Filed: 12/03/16 09:28>
--- NOTE | 2016-12-03 08:14 | PN ---
Progress Note (short form) - Note Progress Note: Post op day#1.S/P Lap cholecystectomy under Ga uneventful.Patient stable.No any anesthesia related problem.Patient Dc from the anesthesia care.
[2016-12-03] MEDS ORDERED: POTASSIUM CHLORIDE ORAL LIQUID 20 MEQ/15 ML PO ONE (08:31)
[2016-12-03] MEDS ORDERED: POTASSIUM CHLORIDE TABS 20 MEQ TABLET.ER (FP) PO ONE (09:00)
--- NOTE | 2016-12-03 09:18 | PN ---
Physical Exam: SUBJECTIVE: She stated she had chest pain with shortness of breath last night but all labs came back normal. No fever, chills, n/v. Pain is under control. No bowel movement or flatulence, only belching. OBJECTIVE: Vital Signs Period Temp Pulse Resp BP Sys/Galan Pulse Ox Last 24 Hr 98.8 F-100.0 F 69-114 16-18 105-147/63-93 95-98 GENERAL: The patient is awake, alert, and fully oriented, in no acute distress. LUNGS: CTAB HEART: tachycardic, S1, S2 without murmur, rub or gallop. ABDOMEN: Soft, 3 surgical sites covered with dressing, BHARGAVI tube placed in RUQ, tenderness at surgical sites, nondistended, no guarding/rebound EXTREMITIES: SCDs, no edema. CBCD WBC 18.2 K/mm3 (4.0-10.0) H 12/03/16 06:00 RBC 3.30 M/mm3 (3.60-5.2) L 12/03/16 06:00 Hgb 9.7 GM/dL (10.7-15.3) L D 12/03/16 06:00 Hct 29.7 % (32.4-45.2) L 12/03/16 06:00 MCV 90.0 fl (80-96) 12/03/16 06:00 MCHC 32.8 g/dl (32.0-36.0) 12/03/16 06:00 RDW 13.4 % (11.6-15.6) 12/03/16 06:00 Plt Count 187 K/MM3 (134-434) 12/03/16 06:00 MPV 9.4 fl (7.5-11.1) D 12/03/16 06:00 CMP Sodium 140 mmol/L (136-145) 12/03/16 06:00 Potassium 3.1 mmol/L (3.5-5.1) L 12/03/16 06:00 Chloride 100 mmol/L (98-107) 12/03/16 06:00 Carbon Dioxide 30 mmol/L (21-32) 12/03/16 06:00 Anion Gap 10 (8-16) 12/03/16 06:00 BUN 4 mg/dL (7-18) L D 12/03/16 06:00 Creatinine 0.3 mg/dL (0.55-1.02) L D 12/03/16 06:00 Creat Clearance w eGFR > 60 (>60) 12/03/16 06:00 Calcium 7.8 mg/dL (8.5-10.1) L 12/03/16 06:00 Total Bilirubin 0.7 mg/dL (0.2-1.0) D 12/03/16 06:00 AST 25 U/L (15-37) D 12/03/16 06:00 ALT 37 U/L (12-78) D 12/03/16 06:00 Alkaline Phosphatase 97 U/L (45-117) D 12/03/16 06:00 Total Protein 4.6 g/dl (6.4-8.2) L 12/03/16 06:00 Albumin 2.1 g/dl (3.4-5.0) L 12/03/16 06:00 Active Medications Generic Name Dose Route Start Last Admin Trade Name Mayda PRN Reason Stop Dose Admin Acetaminophen 650 mg 12/02/16 15:11 Tylenol - PO Q4H PRN FEVER OR PAIN Hydromorphone HCl 0.5 mg 12/02/16 15:11 12/03/16 08:29 Dilaudid Injection - IVPB 0.5 mg Q3H PRN Administration PAIN Metronidazole 100 mls @ 100 mls/hr 12/02/16 15:30 12/03/16 02:27 Flagyl 500mg Premixed Ivpb - IVPB 100 mls/hr Q6H-IV PABLO Administration Lactated Ringer's 1,000 mls @ 125 mls/hr 12/02/16 15:11 12/03/16 05:54 Lactated Ringers Solution IV 125 mls/hr ASDIR PABLO Administration Levofloxacin 150 mls @ 150 mls/hr 12/02/16 15:30 12/02/16 17:41 Levaquin 750 Mg Premixed Ivpb - IVPB 150 mls/hr DAILY PABLO Administration Pantoprazole Sodium 100 mls @ 200 mls/hr 12/03/16 10:00 Protonix 40mg Ivpb (Pre-Docked) IVPB DAILY PABLO Magnesium Sulfate 2 gm 12/03/16 08:58 Magnesium Sulfate IVPB 12/03/16 08:59 ONCE ONE Ondansetron HCl 4 mg 12/02/16 15:11 Zofran Injection IVPB Q6H PRN NAUSEA Potassium Chloride 40 meq 12/03/16 09:00 K-Dur - PO 12/03/16 09:01 ONCE ONE Microbiology 11/30/16 17:15 Blood Culture - Preliminary Blood - Peripheral Venous NO GROWTH OBTAINED AFTER 48 HOURS, INCUBATION TO CONTINUE FOR 3 DAYS. 11/30/16 15:00 Blood Culture - Preliminary Blood - Peripheral Venous NO GROWTH OBTAINED AFTER 48 HOURS, INCUBATION TO CONTINUE FOR 3 DAYS. 12/01/16 01:10 Urine Culture - Final Urine - Urine Clean Catch NO GROWTH OBTAINED IMAGING U/S abd on 12/01: acute calculus cholecystitis CT abd on 12/01: acutely inflammed and overdistended gallbladder with pericholecystic fluid ASSESSMENT/PLAN: 36 yo F admitted to med-surg for sepsis secondary to acute cholecystitis. She's now s/p cholecystectomy with BHARGAVI drain tube placed. Acute calculus cholecystitis, moderate severity - s/p lap cholecystectomy + BHARGAVI tube post-op day 1 - Cont. flagyl 500mg Q6H day 4 and levaquin 750mg daily day 3 - Dilaudid 0.5 Q3H PRN for pain control - Zofran for n/v - OOB and PT FEN - Cont. LR 125cc/hr - Hypokalemia with low Mg2+, replete both Mg2+ and 40 jonathan of KCl - Advanced to soft diet Prophylaxis - DVT: SCDs - GI: PPI Dispo - Cont. to monitor on med-surg Visit type - Emergency Visit Emergency Visit: No - New Patient This patient is new to me today: No - Critical Care Critical Care patient: No
[2016-12-03] MEDS ORDERED: PANTOPRAZOLE SODIUM 100 ML IVPB SCH (10:00)
[2016-12-03] MEDS ORDERED: MAGNESIUM SULF 50% (8.12 MEQ/2 ML-1 GM VIAL) IVPB ONE ×2 (10:00→14:45)
--- NOTE | 2016-12-03 12:47 | PN ---
Teaching Attending Note Name of Resident: Saad Oh ATTENDING PHYSICIAN STATEMENT I saw and evaluated the patient. I reviewed the resident's note and discussed the case with the resident. I agree with the resident's findings and plan as documented. SUBJECTIVE: Patient complains of abdominal discomfort. No nausea, vomiting. OBJECTIVE: Vital Signs Period Temp Pulse Resp BP Sys/Galan Pulse Ox Last 24 Hr 98.8 F-100.0 F 69-114 16-18 105-147/63-93 95-98 HEART: S1S2, RRR LUNGS: Clear ABDOMEN: Soft, mild diffuse tenderness, non-distended, hypoactive BS EXTREMITIES: No edema ASSESSMENT AND PLAN: This is a 36 year old woman with no significant history who presented to the ER with abdominal pain. 1. Sepsis secondary to acute cholecystitis - s/p lap kelly 12/02 - Has BHARGAVI drain - Continue Levaqkojo Flagyl 2. Hypokalemia - Replete potassium 3. Hypomagnesemia - Supplement magnesium
[2016-12-03] MEDS: LEVOFLOXACIN 750 MG IVPB 150 ML IVPB SCH (16:52)
[2016-12-03] MEDS: PANTOPRAZOLE SODIUM 100 ML IVPB SCH (18:48)
[2016-12-04] MEDS: METRONIDAZOLE 500 MG PREMIXED 100 ML IVPB SCH ×4 (02:08→21:25)
[2016-12-04] MEDS: HYDROmorphone HCL CARPU-JECT 1 MG/1 ML DISP.SYRIN IVPB PRN ×4 (02:37→21:23)
--- NOTE | 2016-12-04 07:39 | PN ---
Progress Note (short form) - Note Progress Note: POD #2 Alert. Resting comfortably without complaint. She tolerated a soft diet last night. Continues to ambulate unassisted. Voiding spontaneously. Passing flatus. Denies n/v/f/c, CP or SOB. Last Vital Signs Temp Pulse Resp BP Pulse Ox 99.7 F H 73 20 123/80 98 12/04/16 05:28 12/04/16 05:28 12/04/16 05:28 12/04/16 05:28 12/03/16 21:00 WBC TREND 12/01/16 12/03/16 12/04/16 06:00 06:00 06:00 WBC 23.8 H 18.2 H 14.3 H BMP 12/04/16 06:00 PE Gen: nad Abd: soft. mild incisional tenderness upon palpation. No hematoma. All surgical ports intact. BHARGAVI serosang LE: soft. NT. No swelling bilat <Hosea Curtis P - Last Filed: 12/04/16 08:20> - Note Progress Note: Attending Surgeon POD #2 Seen and evaluated; concur w/ a/p as outlined by TIFFANIE Curtis; WBC down to 14.3; drain removed. Advance diet and anticipate d/c 12/05/16 to OPD f/u next week. Scotty Madrid MD FACS <Scotty Madrid N - Last Filed: 12/04/16 08:27> Problem List - Problems (1) S/P laparoscopic cholecystectomy Assessment/Plan: Advance diet as tolerated Cont to ambulate Tylenol 650mg PO for fever > 100.3F BHARGAVI dc'd on rounds PO pain management PRN Incentive spirometer ABX Hypokalemia 3.1 repleted Hypomag resolved Code(s): Z90.49 - ACQUIRED ABSENCE OF OTHER SPECIFIED PARTS OF DIGESTIVE TRACT <Hosea Curtis P - Last Filed: 12/04/16 08:20>
[2016-12-04 07:47] LABS: MCH 29.8 pg (25.7-33.7); MCHC 33.2 g/dl (32.0-36.0); MEAN CELL VOLUME 89.7 fl (80-96); MEAN PLT VOLUME 9.1 fl (7.5-11.1); PLATELET COUNT 213 K/MM3 (134-434); RDW 13.3 % (11.6-15.6); WHITE BLOOD COUNT 14.3 K/mm3 (4.0-10.0)
[2016-12-04 08:12] LABS: ANION GAP 9 (8-16); CALCIUM 8.2 mg/dL (8.5-10.1); CO2 32 mmol/L (21-32); CREATININE 0.2 mg/dL (0.55-1.02); GLUCOSE,RANDOM 79 mg/dL (74-106); MAGNESIUM 1.9 mg/dL (1.8-2.4)
[2016-12-04 08:19] LABS: TROPONIN I < 0.02 ng/ml (0.00-0.05)
[2016-12-04] MEDS: POTASSIUM CHLORIDE TABS 20 MEQ TABLET.ER (FP) PO SCH ×2 (09:53→21:24)
[2016-12-04] MEDS: PANTOPRAZOLE SODIUM 100 ML IVPB SCH (09:53)
[2016-12-04] MEDS: LEVOFLOXACIN 750 MG IVPB 150 ML IVPB SCH (09:53)
--- NOTE | 2016-12-04 13:00 | PN ---
Physical Exam: SUBJECTIVE: c/o back pain. Afraid to get out of the bed. No bowel movement but passing gas and belching. No fever, chills, n/v. OBJECTIVE: Vital Signs Period Temp Pulse Resp BP Sys/Galan Pulse Ox Last 24 Hr 98.9 F-99.7 F 73-93 20-20 123-141/80-97 98 GENERAL: The patient is awake, alert, and fully oriented, in no acute distress. LUNGS: CTAB HEART: RRR, S1, S2 without murmur, rub or gallop. ABDOMEN: Soft, 3 surgical sites covered with dressing, BHARGAVI tube placed in RUQ draining bloody fluid, tenderness at surgical sites, nondistended, no guarding/ rebound EXTREMITIES: SCDs, no edema. CBCD WBC 14.3 K/mm3 (4.0-10.0) H 12/04/16 06:00 RBC 3.50 M/mm3 (3.60-5.2) L 12/04/16 06:00 Hgb 10.4 GM/dL (10.7-15.3) L 12/04/16 06:00 Hct 31.4 % (32.4-45.2) L 12/04/16 06:00 MCV 89.7 fl (80-96) 12/04/16 06:00 MCHC 33.2 g/dl (32.0-36.0) 12/04/16 06:00 RDW 13.3 % (11.6-15.6) 12/04/16 06:00 Plt Count 213 K/MM3 (134-434) 12/04/16 06:00 MPV 9.1 fl (7.5-11.1) 12/04/16 06:00 CMP Sodium 140 mmol/L (136-145) 12/04/16 06:00 Potassium 3.1 mmol/L (3.5-5.1) L 12/04/16 06:00 Chloride 99 mmol/L (98-107) 12/04/16 06:00 Carbon Dioxide 32 mmol/L (21-32) 12/04/16 06:00 Anion Gap 9 (8-16) 12/04/16 06:00 BUN 3 mg/dL (7-18) L D 12/04/16 06:00 Creatinine 0.2 mg/dL (0.55-1.02) L D 12/04/16 06:00 Creat Clearance w eGFR > 60 (>60) 12/03/16 06:00 Calcium 8.2 mg/dL (8.5-10.1) L 12/04/16 06:00 Total Bilirubin 0.7 mg/dL (0.2-1.0) D 12/03/16 06:00 AST 25 U/L (15-37) D 12/03/16 06:00 ALT 37 U/L (12-78) D 12/03/16 06:00 Alkaline Phosphatase 97 U/L (45-117) D 12/03/16 06:00 Total Protein 4.6 g/dl (6.4-8.2) L 12/03/16 06:00 Albumin 2.1 g/dl (3.4-5.0) L 12/03/16 06:00 Intake & Output 12/01/16 12/02/16 12/03/16 12/04/16 23:59 23:59 23:59 23:59 Intake Total 2330 4747 3725 1425 Output Total 550 1190 Balance 2330 1807 3105 1425 Active Medications Generic Name Dose Route Start Last Admin Trade Name Freq PRN Reason Stop Dose Admin Acetaminophen 650 mg 12/02/16 15:11 Tylenol - PO Q4H PRN FEVER OR PAIN Hydromorphone HCl 0.5 mg 12/02/16 15:11 12/04/16 10:15 Dilaudid Injection - IVPB 0.5 mg Q3H PRN Administration PAIN Metronidazole 100 mls @ 100 mls/hr 12/02/16 15:30 12/04/16 09:55 Flagyl 500mg Premixed Ivpb - IVPB 100 mls/hr Q6H-IV PABLO Administration Lactated Ringer's 1,000 mls @ 125 mls/hr 12/02/16 15:11 12/03/16 23:40 Lactated Ringers Solution IV 125 mls/hr ASDIR PABLO Administration Levofloxacin 150 mls @ 150 mls/hr 12/02/16 15:30 12/04/16 09:53 Levaquin 750 Mg Premixed Ivpb - IVPB 150 mls/hr DAILY PABLO Administration Pantoprazole Sodium 100 mls @ 200 mls/hr 12/03/16 10:00 12/04/16 09:53 Protonix 40mg Ivpb (Pre-Docked) IVPB 200 mls/hr DAILY PABLO Administration Ondansetron HCl 4 mg 12/02/16 15:11 Zofran Injection IVPB Q6H PRN NAUSEA Potassium Chloride 40 meq 12/04/16 10:00 12/04/16 09:53 K-Dur - PO 12/04/16 22:00 40 meq BID PABLO Administration IMAGING U/S abd on 12/01: acute calculus cholecystitis CT abd on 12/01: acutely inflammed and overdistended gallbladder with pericholecystic fluid ASSESSMENT/PLAN: 36 yo F admitted to med-surg for sepsis secondary to acute cholecystitis. She's now s/p cholecystectomy with BHARGAVI drain tube placed. Acute calculus cholecystitis, moderate severity - s/p lap cholecystectomy + BHARGAVI tube post-op day 2 - Cont. flagyl 500mg Q6H day 5 and levaquin 750mg daily day 4 - Dilaudid 0.5 Q3H PRN for pain control - Zofran for n/v - OOB and PT FEN - d/c fluid - Hypokalemia, on PABLO 40 jonathan BID of KCl - Regular diet Prophylaxis - DVT: SCDs - GI: PPI Dispo - Discharge tomorrow if continue to tolerate diet Visit type - Emergency Visit Emergency Visit: No - New Patient This patient is new to me today: No - Critical Care Critical Care patient: No
[2016-12-04] MEDS: LACTATED RINGERS SOLUTION 1,000 ML IV SCH (13:22)
--- NOTE | 2016-12-04 13:39 | EKG ---
Test Reason : Blood Pressure : / mmHG Vent. Rate : 070 BPM Atrial Rate : 070 BPM P-R Int : 162 ms QRS Dur : 084 ms QT Int : 396 ms P-R-T Axes : 001 016 002 degrees QTc Int : 427 ms NORMAL SINUS RHYTHM T WAVE ABNORMALITY, CONSIDER ANTERIOR ISCHEMIA ABNORMAL ECG NO PREVIOUS ECGS AVAILABLE Confirmed by SILAS GARNER MD ([id number] on 12/04/2016 1:39:03 PM Referred By: Confirmed By:SILAS GARNER MD
--- NOTE | 2016-12-04 16:49 | PN ---
Teaching Attending Note Name of Resident: Saad Oh ATTENDING PHYSICIAN STATEMENT I saw and evaluated the patient. I reviewed the resident's note and discussed the case with the resident. I agree with the resident's findings and plan as documented. SUBJECTIVE: Pain is improving. Has no appetite. She is passing flatus but has not had BM. OBJECTIVE: Vital Signs Period Temp Pulse Resp BP Sys/Galan Pulse Ox Last 24 Hr 98.8 F-99.7 F 73-93 20-20 123-135/80-97 98 HEART: S1S2, RRR LUNGS: Clear ABDOMEN: Soft, mild diffuse tenderness, non-distended, hypoactive BS EXTREMITIES: No edema ASSESSMENT AND PLAN: This is a 36 year old woman with no significant history who presented to the ER with abdominal pain. 1. Sepsis secondary to acute cholecystitis - s/p lap kelly 12/02 - BHARGAVI drain removed - Continue Levaquin Flagyl 2. Hypokalemia - Replete potassium 3. Hypomagnesemia - Improved
[2016-12-05] MEDS: HYDROmorphone HCL CARPU-JECT 1 MG/1 ML DISP.SYRIN IVPB PRN (01:05)
[2016-12-05] MEDS: LACTATED RINGERS SOLUTION 1,000 ML IV SCH (01:08)
[2016-12-05] MEDS: METRONIDAZOLE 500 MG PREMIXED 100 ML IVPB SCH (02:36)
[2016-12-05 07:26] LABS: MCH 30.6 pg (25.7-33.7); MCHC 34.2 g/dl (32.0-36.0); MEAN CELL VOLUME 89.6 fl (80-96); MEAN PLT VOLUME 8.6 fl (7.5-11.1); PLATELET COUNT 255 K/MM3 (134-434); RDW 13.4 % (11.6-15.6); WHITE BLOOD COUNT 9.6 K/mm3 (4.0-10.0)
[2016-12-05 07:50] LABS: CALCIUM 8.3 mg/dL (8.5-10.1)
[2016-12-05 07:55] LABS: ANION GAP 9 (8-16); CO2 31 mmol/L (21-32); CREATININE 0.3 mg/dL (0.55-1.02); GLUCOSE,RANDOM 91 mg/dL (74-106); MAGNESIUM 1.8 mg/dL (1.8-2.4)
--- NOTE | 2016-12-05 08:22 | PN ---
Progress Note (short form) - Note Progress Note: Attending Surgeon POD #3 Had some n/v this AM; some pain relieved w/pain meds Passing flatus and had a smal bowel movement VSS AF abdo-soft; minimal if any distention; no tympany; port sites c/d/i WBC-WNL IMP: Doing well PLAN: OOB; full liquid diet; maybe discharged later today if tolerates diet; no further antibiotics needed given normal WBC and absence of fever; if she does not go home today Dr. Wiliam Solorzano will cover for me in my absence from today through 12/08/16. Scotty Madrid MD FACS
[2016-12-05] MEDS: PANTOPRAZOLE SODIUM 100 ML IVPB SCH (10:03)
--- NOTE | 2016-12-05 11:21 | PN ---
Teaching Attending Note Name of Resident: Saad Oh ATTENDING PHYSICIAN STATEMENT I saw and evaluated the patient. I reviewed the resident's note and discussed the case with the resident. I agree with the resident's findings and plan as documented. SUBJECTIVE: Patient had nausea and vomiting prior to eating this morning. She has had a small bowel movement. OBJECTIVE: Vital Signs Period Temp Pulse Resp BP Sys/Galan Pulse Ox Last 24 Hr 98.7 F-99 F 77-82 20-20 124-141/85-96 98-98 HEART: S1S2, RRR LUNGS: Clear ABDOMEN: Soft, non-tender, non-distended, hypoactive BS EXTREMITIES: No edema ASSESSMENT AND PLAN: This is a 36 year old woman with no significant history who presented to the ER with abdominal pain. 1. Sepsis secondary to acute cholecystitis - s/p lap kelly 12/02 - BHARGAVI drain removed 12/04 - Levaquin, Flagyl discontinued - Discharge today if tolerating diet 2. Hypokalemia - Improved 3. Hypomagnesemia - Improved
--- NOTE | 2016-12-05 11:53 | DS ---
"Physical Exam: SUBJECTIVE: Had n/v before breakfast which was clear then yellow gastric fluid. Also had bowel movement his AM, continues to pass gas and belch. No fever, chills, n/v. OBJECTIVE: Vital Signs Period Temp Pulse Resp BP Sys/Galan Pulse Ox Last 24 Hr 98.7 F-99 F 77-82 20-20 124-141/85-96 98-98 PHYSICAL EXAM GENERAL: The patient is awake, alert, and fully oriented, in no acute distress. LUNGS: CTAB HEART: RRR, S1, S2 without murmur, rub or gallop. ABDOMEN: Soft, 3 surgical sites covered with dressing, normoactive bowel sounds , tenderness at surgical sites, nondistended, no guarding/rebound EXTREMITIES: SCDs, no edema. LABS CBCD WBC 9.6 K/mm3 (4.0-10.0) D 12/05/16 06:00 RBC 3.49 M/mm3 (3.60-5.2) L 12/05/16 06:00 Hgb 10.7 GM/dL (10.7-15.3) 12/05/16 06:00 Hct 31.2 % (32.4-45.2) L 12/05/16 06:00 MCV 89.6 fl (80-96) 12/05/16 06:00 MCHC 34.2 g/dl (32.0-36.0) 12/05/16 06:00 RDW 13.4 % (11.6-15.6) 12/05/16 06:00 Plt Count 255 K/MM3 (134-434) 12/05/16 06:00 MPV 8.6 fl (7.5-11.1) 12/05/16 06:00 CMP Sodium 142 mmol/L (136-145) 12/05/16 06:00 Potassium 4.2 mmol/L (3.5-5.1) D 12/05/16 06:00 Chloride 102 mmol/L (98-107) 12/05/16 06:00 Carbon Dioxide 31 mmol/L (21-32) 12/05/16 06:00 Anion Gap 9 (8-16) 12/05/16 06:00 BUN 2 mg/dL (7-18) L* D 12/05/16 06:00 Creatinine 0.3 mg/dL (0.55-1.02) L D 12/05/16 06:00 Creat Clearance w eGFR > 60 (>60) 12/03/16 06:00 Calcium 8.3 mg/dL (8.5-10.1) L 12/05/16 06:00 Total Bilirubin 0.7 mg/dL (0.2-1.0) D 12/03/16 06:00 AST 25 U/L (15-37) D 12/03/16 06:00 ALT 37 U/L (12-78) D 12/03/16 06:00 Alkaline Phosphatase 97 U/L (45-117) D 12/03/16 06:00 Total Protein 4.6 g/dl (6.4-8.2) L 12/03/16 06:00 Albumin 2.1 g/dl (3.4-5.0) L 12/03/16 06:00 Intake & Output 12/02/16 12/03/16 12/04/16 12/05/16 23:59 23:59 23:59 23:59 Intake Total 4747 3725 4170 1330 Output Total 550 1190 0 Balance 4197 2535 4170 1330 HOSPITAL COURSE: Date of Admission:11/30/16 36 yo F admitted to med-surg for sepsis secondary to acute cholecystitis. She had cholecystectomy with BHARGAVI drain tube placed.Today is s/p lap cholecystectomy day 3. She was treated with flagyl 500mg for 6 days and levaquin 750mg daily for 5 days. Pain has been under control. Had bowel movement and been passing gas and tolerated food. BHARGAVI drain was d/c yesterday and patient is in stable condition to be discharged home and follow up with Dr. Madrid as outpatient. Ambar was sent to her pharmacy for nausea and vomiting. Instruction is given on how to follow up with Dr. Madrid. Date of Discharge: 12/05/16 Minutes to complete discharge: 35 Discharge Summary Reason For Visit: ACUTE CHOLECYSYITIS Condition: Stable - Instructions Diet, Activity, Other Instructions: Dr. Madrid's Discharge Instructions Dear [place], Post Operative Instructions Physical activity Resume your normal everyday activity as tolerated no heavy lifting or exercise until seen by your surgeon. You may walk unlimited amounts of and climb stairs. You may resume driving the car when you feel safe and comfortable behind the wheel. Wound care If you have a bandage, leave it on, and keep dry for 48 - 72 hours. After that time discard the outer bandage. If there are tapes on the skin under the outer bandage, leave them in place. They will peel off in the next 7 to 10 days. Do Not peel them off. You may shower 2 days after surgery. If there are tapes present on the skin, they can get wet. Diet There are no dietary restrictions. Eat healthy, high-fiber foods. Drink 6 to 8 glasses of liquid each day. This will assist in keeping your bowels are regular. Pain management You may take Tylenol or acetaminophen or Ibuprofen (for example, Motrin, Advil etc.) Any pain prescription medication ordered should be taken as prescribed for moderate to severe pain. [place] [employer] CL[employer] checked prior to escribe of narcotic pain management. This report was requested by: Hosea Curtis | Reference #: [id number] Call Dr. Madrid for any of the following: Severe pain not relieved by medication Fever of 101 or higher Excessive bleeding or drainage on dressing Inability to urinate Call the office at [phone] for a post operative appointment in 7 - 10 days. Disposition: HOME - Home Medications Comprehensive Discharge Medication List: Ambulatory Orders Ondansetron HCl [Zofran] 4 mg PO TID PRN #12 tablet 11/28/16 Pantoprazole Sodium [Protonix] 40 mg PO DAILY #7 tablet. 11/28/16 Tramadol HCl 50 mg PO Q4H PRN #20 tablet MDD 6 12/02/16 This patient is new to me today: No Emergency Visit: No Critical Care patient: No - Discharge Referral Referred to [facility] No"
[2016-12-05 15:33] VITALS: BP 135/93; PULSE 90; TEMP 98.6
--- NOTE | 2016-12-05 16:19 | PATH ---
Surgical Pathology Report Patient Name: MAC JUDGE Med. Rec. #: [id number] /Age/Gender: 1980 (Age: 36) / F Account: [id number] Location: [facility] MED/SURG Taken: 12/02/2016 Received: 12/03/2016 Reported: 12/05/2016 Physicians: MD Aldo Anguiano M.D. Specimen(s) Received GALLBLADDER Clinical History Acute cholecystitis Final Diagnosis GALLBLADDER, CHOLECYSTECTOMY: ACUTE GANGRENOUS CHOLECYSTITIS AND CHOLELITHIASIS. Electronically Signed Connor Linares M.D. Gross Description Received in formalin labeled "gallbladder" are 2 portions of a ruptured gallbladder measuring 8.0 x 3.4 x 3.0 cm and 5.5 x 3.5 x 2.8 cm. The larger portion displays an attached 0.2 cm in length portion of cystic duct. The outer surface of the gallbladder is red-brown and shaggy. There is no bile present within the lumen. There is a single 3.7 cm in greatest dimension brown, ovoid cholelith separately received within the same container. The mucosa is hyperemic. The wall of the gallbladder averages 1.0 cm in thickness. Commercial Sales Manager sections are submitted in one cassette. 12/03/201612/03/2016
--- NOTE | 2016-12-11 10:21 | OP ---
DATE OF OPERATION: 12/02/2016 PREOPERATIVE DIAGNOSIS: Acute cholecystitis. POSTOPERATIVE DIAGNOSIS: Acute gangrenous cholecystitis and cholelithiasis. PROCEDURE: Laparoscopic cholecystectomy. SURGEON: Scotty Madrid MD [employer] SALES EXECUTIVE: Kim Collier PA-C ANESTHESIA: General. OPERATIVE FINDINGS: There was cholelithiasis and gangrenous cholecystitis. The rest of the findings were unremarkable. DESCRIPTION OF PROCEDURE: The patient was placed on the operating table in the supine position, and after the induction of general anesthesia, the patient's abdomen was prepped with ChloraPrep and draped in sterile fashion. A timeout was taken and then pneumoperitoneum established above the umbilicus using a Veress needle to a pressure of 15 mmHg. A 5-mm umbilical port was placed, and the previously noted findings were observed. Additional lateral 5-mm ports and a subxiphoid 12-mm port were placed and then the gallbladder placed on cephalad and lateral traction. Adherent omentum was taken down using electrocautery and blunt dissection, and the gallbladder was decompressed with a needle and suction. Dissection was begun in the triangle of Calot, where the peritoneum was opened medially and laterally over the neck of the gallbladder using electrocautery. Using blunt dissection, the cystic duct and artery were identified, dissected proximally and distally for length, and then, a critical view of safety was taken. Once these 2 structures were mobilized, large hemoclips were placed twice distally and twice proximally on the duct and artery respectively, and then, those structures were divided using the EndoShears. The gallbladder was then removed in a retrograde fashion from the liver bed using a combination of electrocautery and the LigaSure device. The gallbladder was then placed in a specimen retrieval bag and a large stone as well and brought out through the subxiphoid port. Pneumoperitoneum was re-established. Copious irrigation was carried out with normal saline and hemostasis secured with electrocautery. A 10-mm Jose-Stevens drain was placed in the right hepatorenal space and brought out through 1 of the 5-mm port sites and secured to the skin with 2-0 silk suture. The drain was connected to bulb suction, and then, all ports were removed under laparoscopic vision without evidence of bleeding from the port sites. The pneumoperitoneum was evacuated. The port sites infiltrated with 0.50% Marcaine, and the skin edges reapproximated in all cases with 4-0 Biosyn, followed by Steri-Strips and Band-Aid dressings. The patient was then aroused from general anesthesia and transferred to the postanesthesia care unit in stable condition, awake and alert. ESTIMATED BLOOD LOSS: 50 mL REPLACEMENTS: Crystalloid. DRAINS: One 10-mm Jose-Stevens. SPECIMEN: Gallbladder and contents to Pathology. I, Scotty Madrid, was physically present in the operating room from the time the patient was placed on the operating table until she was transferred to the postanesthesia care unit in my accompaniment. MD MARYAM Anguiano/[id number]
== END 2016-12-05 15:54 | disposition home or self-care (01) | DRG 578 ==
LOC: JER 06:23 → JERBED 12:31 → J7W 16:11
PROVIDERS: ADMIT Internal Medicine; ATTEND Internal Medicine
PROC: 0W9G40Z Drainage of Peritoneal Cavity with Drainage Device, Percutaneous Endoscopic Approach (ICD-10-PCS; 2016-12-02)
PROC: 0FT44ZZ Resection of Gallbladder, Percutaneous Endoscopic Approach (ICD-10-PCS; principal; 2016-12-02 12:30)
DX: A41.9 Sepsis, unspecified organism (principal); K80.00 Calculus of gallbladder with acute cholecystitis without obstruction; F10.10 Alcohol abuse, uncomplicated; F17.210 Nicotine dependence, cigarettes, uncomplicated; F12.10 Cannabis abuse, uncomplicated; R79.1 Abnormal coagulation profile; E87.6 Hypokalemia; E83.42 Hypomagnesemia; R11.2 Nausea with vomiting, unspecified; R10.11 Right upper quadrant pain; D72.829 Elevated white blood cell count, unspecified
CPT/HCPCS: 36415; 71010-TC; 74177-TC; 76705-TC; 80048; 80053; 80307; 81003; 81015; 82248; 83605; 83690; 83735; 84484; 84703; 85025; 85027; 85610; 86850; 86900; 86901; 87040; 87086; 87389; 88304-TC; 93005; 93010; 94760; 97116-GP; 97161-GP; 99284-25